=== PATIENT | female | born 1985 | race Hispanic/Latino ===

== ENCOUNTER 2018-12-18 06:04 | Emergency (ER) | payer OTHER ==
[2018-12-18] MEDS ORDERED: ONDANSETRON HCL 4 MG/2 ML VIAL ONE (06:09)
[2018-12-18 06:29] LABS: BASOPHILS % (AUTO) 0.6 % (0.0-5.0); EOSINOPHILS % (AUTO) 2.1 % (0.0-8.0); HEMATOCRIT 30.1 % (36-48); LYMPHOCYTES % (AUTO) 32.4 % (21.0-51.0); MEAN CORPUSCULAR HEMOGLOBIN 20.4 pg (27.0-33.0); MEAN CORPUSCULAR HGB CONC 30.2 g/dL (32.0-36.0); MEAN CORPUSCULAR VOLUME 67.4 fL (79-99); MONOCYTES % (AUTO) 5.6 % (3.0-13.0); NEUTROPHILS % (AUTO) 59.3 % (40.0-77.0); PLATELET COUNT (AUTO) 422 K/uL (130-400); RED BLOOD CELL COUNT(AUTO) 4.46 MIL/uL (4.00-5.50); RED CELL DISTRIBUTION WIDTH 17.1 % (11.0-15.5); WHITE BLOOD COUNT (AUTO) 9.7 K/uL (4.8-10.8)
[2018-12-18 06:34] LABS: BILIRUBIN,URINE NEGATIVE (NEGATIVE); COLOR,URINE YELLOW (YELLOW); GLUCOSE, URINE (UA) NEGATIVE (NEGATIVE); KETONES,URINE NEGATIVE (NEGATIVE); LEUKOCYTE ESTERASE ,URINE SMALL (NEGATIVE); NITRATE,URINE NEGATIVE (NEGATIVE); OCCULT BLOOD,URINE NEGATIVE (NEGATIVE); PH,URINE 5.5 (5.0-8.0); PROTEIN,URINE 30 (NEGATIVE); UROBILINOGEN,URINE 0.2 mg/dL (0.2-1.0)
[2018-12-18 06:36] LABS: HCG,QUAL RESULT NEGATIVE (NEGATIVE)
[2018-12-18 06:37] LABS: CREATININE 0.7 mg/dL (0.5-1.5); POTASSIUM 3.8 mmol/L (3.5-5.1)
[2018-12-18 06:42] LABS: APPEARANCE,URINE SLIGHTLY CLOUDY (CLEAR)
[2018-12-18 06:53] LABS: BACTERIA,URINE Moderate /HPF (None Seen); MUCUS,URINE Moderate LPF (None Seen); RBC,URINE None Seen /HPF (0-1)
== END 2018-12-18 07:11 | disposition home or self-care (01) ==
LOC: EDH 06:04
DX: F41.1 Generalized anxiety disorder (principal); D64.89 Other specified anemias; Z88.1 Allergy status to other antibiotic agents; Z90.49 Acquired absence of other specified parts of digestive tract
CPT/HCPCS: 36415; 80048; 81001; 81025; 82550; 82948; 83690; 84484; 85025; 93005; 96374; 99284; J2405

== ENCOUNTER 2020-12-01 08:53 | Emergency (ER) | payer OTHER ==
[2020-12-01 09:27] LABS: APPEARANCE,URINE Clear (CLEAR); BILIRUBIN,URINE Negative (NEGATIVE); COLOR,URINE Yellow (YELLOW); GLUCOSE, URINE (UA) Negative (NEGATIVE); KETONES,URINE Negative (NEGATIVE); LEUKOCYTE ESTERASE ,URINE Small (NEGATIVE); NITRATE,URINE Negative (NEGATIVE); OCCULT BLOOD,URINE Negative (NEGATIVE); PROTEIN,URINE Negative (NEGATIVE)
[2020-12-01 09:34] LABS: BASOPHILS % (AUTO) 0.4 % (0.0-5.0); EOSINOPHILS % (AUTO) 0.4 % (0.0-8.0); HEMATOCRIT 34.9 % (36-48); LYMPHOCYTES % (AUTO) 31.5 % (21.0-51.0); MEAN CORPUSCULAR HEMOGLOBIN 21.7 pg (27.0-33.0); MEAN CORPUSCULAR HGB CONC 29.2 g/dL (32.0-36.0); MEAN CORPUSCULAR VOLUME 74.3 fL (79-99); NEUTROPHILS % (AUTO) 63.5 % (40.0-77.0); PLATELET COUNT (AUTO) 308 K/uL (130-400); RED CELL DISTRIBUTION WIDTH 16.4 % (11.0-15.5); WHITE BLOOD COUNT (AUTO) 4.8 K/uL (4.8-10.8)
[2020-12-01 09:40] LABS: BACTERIA,URINE Moderate /HPF (None Seen); RBC,URINE 0-1 /HPF (0-1)
[2020-12-01 09:44] LABS: CARBON DIOXIDE 29 mmol/L (21-32); CHLORIDE 99 mmol/L (101-111); CREATININE 0.7 mg/dL (0.5-1.5); GLOMERULAR FILTR. RATE CALC 101 mL/min (>60); GLUCOSE,RANDOM 132 mg/dL (70-105); POTASSIUM 3.7 mmol/L (3.5-5.1); SODIUM SERUM 139 mmol/L (136-145); UREA NITROGEN, BLOOD 6 mg/dL (7-18)
[2020-12-01 09:47] LABS: INR 0.99 (0.85-1.15); PROTHROMBIN TIME 10.8 SEC (9.6-11.6)
[2020-12-01 09:49] LABS: PARTIAL THROMBOPLASTIN TIME 27.2 SEC (26.3-35.5)
[2020-12-01 09:56] LABS: ALANINE AMINOTRANSFERASE 52 U/L (12-78); ALBUMIN 3.6 g/dL (3.5-5.0); ASPARTATE AMINOTRANSFERASE 57 U/L (10-37); BILIRUBIN,TOTAL 0.2 mg/dL (0.2-1.0); CREATINE KINASE, TOTAL 59 U/L (21-232); MYOGLOBIN 26 ng/mL (10-92); TOTAL PROTEIN, SERUM 8.8 g/dL (6.0-8.3); TROPONIN I < 0.04 ng/mL (0.00-0.06)
== END 2020-12-01 11:12 | disposition home or self-care (01) ==
LOC: EDH 08:53
DX: U07.1 COVID-19 (principal); J20.9 Acute bronchitis, unspecified; E66.01 Morbid (severe) obesity due to excess calories; F41.9 Anxiety disorder, unspecified; Z88.1 Allergy status to other antibiotic agents; Z68.42 Body mass index [BMI] 45.0-49.9, adult
CPT/HCPCS: 36415; 71045; 80053; 81001; 81025; 82550; 83605; 83874; 84145; 84484; 85025; 85610; 85730; 86900; 86901; 87040; 87077; 87088; 87186; 87426; 93005

== ENCOUNTER 2022-09-12 23:30 | Observation (INO) | payer OTHER ==
[~2022-09-12] VITALS: Ht 167.6 cm; Wt 128.4 kg
[2022-09-13] MEDS ORDERED: KETOROLAC 30MG VIAL (30MG/ML) IVP ONE (00:30)
[2022-09-13] MEDS ORDERED: ONDANSETRON 4MG INJ IVP ONE (00:30)
[2022-09-13 00:34] LABS: BASOPHILS % (AUTO) 0.4 % (0.0-5.0); EOSINOPHILS % (AUTO) 2.2 % (0.0-8.0); HEMATOCRIT 24.4 % (36-48); LYMPHOCYTES % (AUTO) 33.3 % (21.0-51.0); MEAN CORPUSCULAR HEMOGLOBIN 18.8 pg (27.0-33.0); MEAN CORPUSCULAR HGB CONC 27.5 g/dL (32.0-36.0); MEAN CORPUSCULAR VOLUME 68.5 fL (79-99); NEUTROPHILS % (AUTO) 58.5 % (40.0-77.0); PLATELET COUNT (AUTO) 460 K/uL (130-400); RED BLOOD CELL COUNT(AUTO) 3.56 MIL/uL (4.00-5.50); RED CELL DISTRIBUTION WIDTH 17.1 % (11.0-15.5)
[2022-09-13 00:39] LABS: CREATININE 0.6 mg/dL (0.5-1.5); POTASSIUM 3.8 mmol/L (3.5-5.1)
[2022-09-13 00:43] LABS: ALBUMIN 3.4 g/dL (3.5-5.0); TOTAL PROTEIN, SERUM 7.8 g/dL (6.0-8.3)
[2022-09-13 01:11] LABS: APPEARANCE,URINE CLEAR (CLEAR); BILIRUBIN,URINE NEGATIVE (NEGATIVE); COLOR,URINE COLORLESS (YELLOW); GLUCOSE, URINE (UA) NEGATIVE (NEGATIVE); KETONES,URINE NEGATIVE (NEGATIVE); LEUKOCYTE ESTERASE ,URINE NEGATIVE Leu/uL (NEGATIVE); NITRATE,URINE NEGATIVE (NEGATIVE); OCCULT BLOOD,URINE NEGATIVE (NEGATIVE); PROTEIN,URINE NEGATIVE (NEGATIVE); UROBILINOGEN,URINE 0.2 mg/dL (0.2-1.0)
[2022-09-13 01:17] LABS: HCG,QUALITATIVE URINE NEGATIVE (NEGATIVE)
[2022-09-13] MEDS ORDERED: KETOROLAC 15MG/ML VIAL (15MG/ML) IV PRN (04:30)
[2022-09-13] MEDS ORDERED: ONDANSETRON 4MG INJ IV PRN (04:30)
[2022-09-13] MEDS ORDERED: MORPHINE 4 MG SYG IV PRN (04:30)
[2022-09-13] MEDS: 0.9%NACL 1000ML 1,000 ML IV SCH ×2 (05:52→19:19)
[2022-09-13 09:19] LABS: RETICULOCYTE % (AUTO) 1.39 % (0.42-2.23)
[2022-09-13 09:23] LABS: HEMATOCRIT 27.2 % (36-48)
[2022-09-13 10:02] LABS: % IRON SATURATION 8.8 % (22-44)
[2022-09-13 12:37] VITALS: BP 136/83
[2022-09-13 16:21] VITALS: BP 136/68
[2022-09-13 19:11] VITALS: BP 118/60
[2022-09-13 22:26] VITALS: BP 99/53
[2022-09-14 02:42] VITALS: BP 100/67
[2022-09-14] MEDS: 0.9%NACL 1000ML 1,000 ML IV SCH (05:15)
[2022-09-14 06:43] LABS: HEMATOCRIT 25.6 % (36-48); MEAN CORPUSCULAR HEMOGLOBIN 19.6 pg (27.0-33.0); MEAN CORPUSCULAR HGB CONC 27.7 g/dL (32.0-36.0); MEAN CORPUSCULAR VOLUME 70.7 fL (79-99); RED BLOOD CELL COUNT(AUTO) 3.62 MIL/uL (4.00-5.50); RED CELL DISTRIBUTION WIDTH 17.2 % (11.0-15.5); WHITE BLOOD COUNT (AUTO) 5.9 K/uL (4.8-10.8)
[2022-09-14] MEDS ORDERED: FERR325T29 PO (06:58)
[2022-09-14 07:08] VITALS: BP 111/74
[2022-09-14] MEDS ORDERED: FLU VACC QS2022-23(6MOS UP)/PF 60 MCG/0.5 ML ML IM ONE (08:00)
[2022-09-14 08:01] LABS: CREATININE 0.5 mg/dL (0.5-1.5); POTASSIUM 3.8 mmol/L (3.5-5.1)
[2022-09-14] MEDS ORDERED: IRON SUCROSE COMPLEX 100 MG in 0.9%NACL 50ML 50 ML IV SCH (09:00)
[2022-09-14] MEDS ORDERED: IRON SUCROSE COMPLEX 100 MG/5 ML VIAL IVP SCH (09:00)
[2022-09-14 11:25] VITALS: BP 121/70
== END 2022-09-14 13:30 | disposition home or self-care (01) ==
LOC: EDH 23:30 → EDHIP 23:31 → WSH 09-13 12:30
PROVIDERS: ADMIT Hospitalist; ATTEND Hospitalist
DX: D50.9 Iron deficiency anemia, unspecified (principal); N92.0 Excessive and frequent menstruation with regular cycle; E66.01 Morbid (severe) obesity due to excess calories; F17.210 Nicotine dependence, cigarettes, uncomplicated; Z68.43 Body mass index [BMI] 50.0-59.9, adult; Z79.899 Other long term (current) drug therapy; Z23 Encounter for immunization
CPT/HCPCS: 99284; 36415 ×2; 96374; 96376; 96361 ×2; 96375 ×2; 80053; 82728; 83690; 85025; 85014; 85018; 86850; 86900; 86901 ×2; 86923; 82607; 82270; 81003; 81025; 74176; 76856; 80048; 85027; 90471; G0378 ×29; P9016; J7030 ×3; J2405; J1885 ×2; Q2035; J1756

== ENCOUNTER 2025-02-24 20:37 | Emergency (ER) | payer SELFPAY ==
[~2025-02-24] VITALS: Ht 165.1 cm; Wt 141.1 kg
[~2025-02-24 20:37] MED LIST: FERR325T29 PO
--- NOTE | 2025-02-24 21:05 | NUR ---
PT ARRIVED TO ED C/O MUSCLE SPASMS TO BILAT LEGS WORST TODAY PER PT. PT VOICED FELT MUSCLE CRAMPING TO ENTIRE LEG AT HOME. PER PT HAS HIGH BLOOD PRESSURE BUT NOT ON MEDS DUE TO NO PCP. PT ALSO VOICED AT HOME WAS HAVING ON AND OFF GARCIA, DENIES GARCIA OR TINGLING AT THIS TIME. PT A&OX4 NO DISTRESS NOTED AT THIS TIME.
[2025-02-24 21:10] LABS: BASOPHILS # (AUTO) 0.02 K/uL (0.00-0.20); BASOPHILS % (AUTO) 0.2 % (0.0-5.0); EOSINOPHILS # (AUTO) 0.13 K/uL (0.00-0.70); EOSINOPHILS % (AUTO) 1.5 % (0.0-8.0); HEMATOCRIT 32.5 % (36-48); IMMATURE GRANULOCYTE ABSOLUTE 0.02 K/uL (0-1); LYMPHOCYTES # (AUTO) 2.6 K/uL (1.0-4.8); LYMPHOCYTES % (AUTO) 29.6 % (21.0-51.0); MEAN CORPUSCULAR HEMOGLOBIN 20.8 pg (27.0-33.0); MEAN CORPUSCULAR HGB CONC 28.3 g/dL (32.0-36.0); MEAN CORPUSCULAR VOLUME 73.4 fL (79-99); MONOCYTES # (AUTO) 0.6 K/uL (0.1-1.0); MONOCYTES % (AUTO) 6.2 % (3.0-13.0); NEUTROPHILS # (AUTO) 5.5 K/uL (1.8-7.7); NEUTROPHILS % (AUTO) 62.3 % (40.0-77.0); PLATELET COUNT (AUTO) 433 K/uL (130-400); RED BLOOD CELL COUNT(AUTO) 4.43 MIL/uL (4.00-5.50); RED CELL DISTRIBUTION WIDTH 18.1 % (11.0-15.5); WHITE BLOOD COUNT (AUTO) 8.8 K/uL (4.8-10.8)
[2025-02-24 21:21] LABS: CREATININE 0.6 mg/dL (0.5-1.0); POTASSIUM 3.9 mmol/L (3.5-5.1)
[2025-02-24] MEDS ORDERED: IBUP-1673 PO (22:18)
[2025-02-24] MEDS ORDERED: ACET-3859 PO (22:18)
--- NOTE | 2025-02-24 22:20 | ERN ---
General Chief Complaint: Muscle Spasm Stated Complaint: C/O MUSCLE SPASMS, HEADACHE Time Seen by MD: 20:39 Time Seen by Midlevel: 20:39 Source: patient History of Present Illness Initial Comments The patient was a pleasant 39-year-old female with a past medical history of anemia presenting to the emergency department for evaluation of generalized muscle spasms that started earlier today. She states that while doing her daily activities she was having muscle cramps. Denies any other symptoms. On arrival she did report developing a headache but denies any vision changes, nausea, vomiting, or any other symptoms at this time. Allergies: Coded Allergies: sulfamethoxazole (Unverified Allergy, Unknown, 09/12/22) trimethoprim (Unverified Allergy, Unknown, 09/12/22) Home Meds Active Scripts Ferrous Sulfate (Ferosul) 325 Mg Tablet, 325 MG PO BID, #60 TAB 0 Refills Prov:HURTADOWILIAM Jasmina AGPCSTAS 09/14/22 Past Medical History Past Medical History: Anemia Past Surgical History: Cholecystectomy Social History Social History: Other Female( History) LMP: Feb 21, 2025 ROS Dictation CONSTITUTIONAL: Negative except for HPI HEAD/FACE: Negative except for HPI EENT: Negative except for HPI RESPIRATORY: Negative except for HPI GASTROINTESTINAL/ABDOMINAL: Negative except for HPI GENITOURINARY: Negative except for HPI MUSCULOSKELETAL: Negative except for HPI INTEGUMENTARY: Negative except for HPI NEUROLOGICAL/PSYCH: Negative except for HPI HEMATOLOGIC/LYMPHATIC: Negative except for HPI All Systems Negative, Except as noted above. 13 point review of systems assessed and all negative except for above. Physical Exam Physical Exam Dictation Vital Signs reviewed General Appearance: Alert, oriented x 3, no acute distress, well developed, nourished. Head and Face: non-traumatic. Eyes: PERRL, pink conjunctivas, eyelid no trauma, anterior chamber with arcus senilis. Ears: Pinnas intact and no signs of trauma or erythema ear canals clear and no discharge TM no erythema Nose: No discharge, no bleeding. Oropharynx: Mouth normal, tongue pink, pharynx clear,no erythema, tonsils no exudates, no abscesses noted, mucous membrane moist Neck: Supple, non-tender, no thyromegaly, no masses, no JVD, no bruits Breast:Deferred Chest:No tenderness, no crepitus, no paradoxical movement, no retractions Lungs:Clear, well-ventilated, symmetric, no rales, no wheezing, no rhonchi, no stridor, good breath sounds bilaterally Heart: Regular rate, regular rhythm, no murmur, no gallops Vascular: no peripheral edema, Abdomen: Soft, positive bowel sounds, nondistended, no guarding, nontender, no rebound, no masses no hepatomegaly, no splenomegaly, no Dawn's s ign, no hernias. Rectal: Deferred Genital: Deferred Neurological: Normal speech, motor function intact, sensory function intact Musculoskeletal: Neck nontender, full range of motion, back nontender, full range of motion, Extremities: nontender, full range of motion Skin: Color pink, dry, no turgor, no rash, no lacerations, no abrasions, no contusions. Lymphatic: Deferred Results Laboratory and Microbiology Lab and Micro Result Laboratory Tests Test 02/24/25 21:04 White Blood Count 8.8 K/uL (4.8-10.8) Red Blood Count 4.43 MIL/uL (4.00-5.50) Hemoglobin 9.2 g/dL (12.0-16.0) L Hematocrit 32.5 % (36-48) L Mean Corpuscular Volume 73.4 fL (79-99) L Mean Corpuscular Hemoglobin 20.8 pg (27.0-33.0) L Mean Corpuscular Hemoglobin Concent 28.3 g/dL (32.0-36.0) L Red Cell Distribution Width 18.1 % (11.0-15.5) H Platelet Count 433 K/uL (130-400) H Mean Platelet Volume 9.3 fL (7.5-10.5) Immature Granulocyte % (Auto) 0.2 % (0-1) Neutrophils (%) (Auto) 62.3 % (40.0-77.0) Lymphocytes (%) (Auto) 29.6 % (21.0-51.0) Monocytes (%) (Auto) 6.2 % (3.0-13.0) Eosinophils (%) (Auto) 1.5 % (0.0-8.0) Basophils (%) (Auto) 0.2 % (0.0-5.0) Neutrophils # (Auto) 5.5 K/uL (1.8-7.7) Lymphocytes # (Auto) 2.6 K/uL (1.0-4.8) Monocytes # (Auto) 0.6 K/uL (0.1-1.0) Eosinophils # (Auto) 0.13 K/uL (0.00-0.70) Basophils # (Auto) 0.02 K/uL (0.00-0.20) Absolute Immature Granulocyte (auto 0.02 K/uL (0-1) Nucleated Red Blood Cells 0.0 % (0.0-0.19) Red Blood Cell Morphology See comments Sodium Level 135 mmol/L (136-145) L Potassium Level 3.9 mmol/L (3.5-5.1) Chloride Level 100 mmol/L (101-111) L Carbon Dioxide Level 30 mmol/L (21-32) Blood Urea Nitrogen 8 mg/dL (7-18) Creatinine 0.6 mg/dL (0.5-1.0) Glomerular Filtration Rate Calc 116 mL/min (>90) Random Glucose 107 mg/dL (70-105) H Total Calcium 8.7 mg/dL (8.5-10.1) Serum Test, Qualitative NEGATIVE (NEGATIVE) Labs Reviewed?: Yes MDM MDM: Differential diagnosis: Electrolyte abnormality, dehydration, There are no social concerns with this patient. Prescription drug management Prescriptions will include: Tylenol and Motrin Medical management and examination interpretation discussions were had by me with other qualified healthcare professionals as indicated for the patient's care. ED Course Orders Procedure Category Date Status Time Cbc With Differential LAB 02/24/25 Complete 20:57 Basic Metabolic Panel LAB 02/24/25 Complete 20:57 Testing, LAB 02/24/25 Complete Serum Hcg 20:57 Vital Signs Date Time Temp Pulse Resp B/P (MAP) Pulse Ox O2 Delivery O2 Flow Rate FiO2 02/24/25 21:00 102 20 155/99 100 Room Air* 0 21 02/24/25 20:39 98.2 92 20 176/100 96 Room Air DX & DISP Disposition: Discharge Departure Impression: Primary Impression: Muscle cramping Additional Impression: Chronic anemia Condition: Stable Scripts Ibuprofen (Motrin Ib) 200 Mg Tablet 2 TAB PO Q6H for 5 Days, #40 TAB 0 Refills Prov: SERAFIN LARSON 02/24/25 Acetaminophen (Acetaminophen) 325 Mg Tablet 1 TAB PO TID PRN for pain or fever for 10 Days, #30 TAB 0 Refills Prov: SERAFIN LARSON 02/24/25 Additional Instructions: Your blood work today is unremarkable. Your electrolytes are normal. Your kidney function is normal. You need to follow up with the primary care doctor. You may potentially establish with Iv[facility] Choi for outpatient evaluation. I have given you a prescription for Tylenol and Motrin as requested. Referrals: SELF,REFERRAL (PCP) Time of Disposition: 22:17 I have reviewed the case, and I agree with, Diagnosis and Plan I performed the substantive portion of the visit. I have reviewed and personally made and approve the management plan that is documented in the note by myself or the MERLIN. I acknowledge for responsibility for the patient's managem ent plan. SERAFIN LARSON Feb 24, 2025 22:20
[2025-02-24] MEDS: acetaMINOPHEN 500 MG TABLET PO ONE (22:22)
[2025-02-24 22:30] VITALS: BP 137/87; PULSE 91; RESP 18; TEMP 98.3; O2SAT 98
== END 2025-02-24 22:31 | disposition home or self-care (01) ==
LOC: EDH 20:37
DX: M62.838 Other muscle spasm (principal); D64.9 Anemia, unspecified; Z88.1 Allergy status to other antibiotic agents; Z88.2 Allergy status to sulfonamides; Z90.49 Acquired absence of other specified parts of digestive tract
CPT/HCPCS: 36415; 80048; 84703; 85025; 99283

== ENCOUNTER 2025-10-16 17:13 | Emergency (ER) | payer SELFPAY ==
[~2025-10-16] VITALS: Ht 162.6 cm; Wt 94.3 kg
[~2025-10-16 17:13] MED LIST changes: +ACET-3859 PO; +IBUP-1673 PO
[2025-10-16 17:44] LABS: IMMATURE GRANULOCYTE ABSOLUTE 0.03 K/uL (0-1); NUCLEATED RED BLOOD CELLS 0.0 % (0.0-0.19); PLATELET COUNT (AUTO) 438 K/uL (130-400); RED BLOOD CELL COUNT(AUTO) 4.45 MIL/uL (4.00-5.50); RED CELL DISTRIBUTION WIDTH 17.3 % (11.0-15.5); WHITE BLOOD COUNT (AUTO) 9.3 K/uL (4.8-10.8)
[2025-10-16 17:51] LABS: CREATININE 0.6 mg/dL (0.5-1.0); GLOMERULAR FILTR. RATE CALC 116.0 mL/min (>90); GLUCOSE,RANDOM 116.0 mg/dL (70-105); SODIUM SERUM 135.0 mmol/L (136-145); UREA NITROGEN, BLOOD 7.0 mg/dL (7-18)
--- NOTE | 2025-10-16 19:44 | HMCIMG ---
EXAM: US Pelvis, Complete. CLINICAL HISTORY: rlq abd pain r/o ovarian torsion TECHNIQUE: Transvaginal and transabdominal pelvic ultrasound (complete) with image documentation. COMPARISON: None provided. FINDINGS: ENDOMETRIUM: Endometrial thickness measures approximately 11 mm, within normal limits. UTERUS/CERVIX: The uterus measures approximately 11.6 x 6.7 x 5.6 cm with heterogeneous myometrial echoes. No focal uterine fibroid or other mass is identified. RIGHT OVARY: Measures approximately 3.2 x 1.6 x 3.1 cm. Bilateral ovarian vascularity is preserved. Multiple cysts are noted measuring 3.5 x 3.7 x 4.1 cm, 1.7 x 2.0 x 1.9 cm, and 2.1 x 1.7 x 1.6 cm. Small possible hydrosalpinx is noted in the right adnexa with a tubular structure. No evidence of torsion. LEFT OVARY: Measures approximately 2.5 x 1.6 x 2.5 cm. Bilateral ovarian vascularity is preserved. Cysts noted measuring 1.6 x 1.5 cm and 1.2 x 1.0 cm. FREE FLUID: No free fluid in the pelvis. IMPRESSION: Bilateral ovarian cysts with possible right hydrosalpinx. No evidence of torsion. /[place]
[2025-10-16] MEDS ORDERED: IOHEXOL-350 75 ML VIAL IV ONE (20:11)
[2025-10-16 20:36] LABS: APPEARANCE,URINE CLEAR (CLEAR); GLUCOSE, URINE (UA) NEGATIVE (NEGATIVE); LEUKOCYTE ESTERASE ,URINE NEGATIVE Leu/uL (NEGATIVE); NITRATE,URINE NEGATIVE (NEGATIVE); OCCULT BLOOD,URINE NEGATIVE (NEGATIVE)
[2025-10-16 20:37] LABS: ADD UA MICROSCOPIC NO
--- NOTE | 2025-10-16 20:41 | NUR ---
ER MEDICINE CABINET IS DEPLETED OF KETOROLAC 15MG/1ML VIALS. PHARMACY MADE AWARE.
--- NOTE | 2025-10-16 20:42 | NUR ---
PATIENT EDUCATED ON IODINE CONTRAST AND ASSOCIATED RISK. PATIENT VERBALIZED UNDERSTANDING AND CONSENT. CONTRAST CONSENT FORM SIGNED BY PATIENT AND WITNESSEDBY ED RN. FORM PLACED IN PATIENT'S CHART.
--- NOTE | 2025-10-16 22:09 | HMCIMG ---
EXAM: CT Abdomen and Pelvis with IV Contrast. CLINICAL HISTORY: Patient presents with right lower quadrant abdominal pain to rule out appendicitis. TECHNIQUE: Axial computed tomography images of the abdomen and pelvis performed with intravenous contrast. COMPARISON: None provided. FINDINGS: LUNG BASES: Clear lung bases without pleural effusion. LIVER: Mild hepatomegaly with the right hepatic lobe measuring up to 22.0 cm in craniocaudal dimension. Diffuse hepatic steatosis. GALLBLADDER AND BILE DUCTS: Gallbladder surgically absent. No biliary ductal dilatation. PANCREAS: Normal morphology. SPLEEN: Borderline splenomegaly measuring approximately 12.5 cm. ADRENAL GLANDS: Normal appearance. KIDNEYS, URETERS, AND BLADDER: Horseshoe kidney with fusion of the lower poles across the midline by a parenchymal isthmus and anteriorly malrotated yuliya. Renal parenchymal thickness and enhancement were preserved. No hydronephrosis or calculus. The urinary bladder is suboptimally distended with mild wall thickening. STOMACH AND BOWEL: Uncomplicated colonic diverticulosis without features of diverticulitis. No bowel obstruction. APPENDIX: Appendix within normal limits. PERITONEUM: Small volume of free fluid in the pouch of Ferdinand. No pneumoperitoneum. LYMPH NODES: No enlarged abdominopelvic lymph nodes. REPRODUCTIVE: The right ovary appears bulky, measuring approximately 3.3 x 6.2 cm. Complex tubulo-cystic lesion in the right adnexa closely abutting the ovary, measuring approximately 4.0 x 5.6 x 4.8 cm, with internal septations. VASCULATURE: Abdominal aorta of normal caliber. BONES: Multilevel mild spondylosis without acute osseous abnormality. IMPRESSION: No CT features of acute appendicitis. Mild hepatomegaly with hepatic steatosis Borderline splenomegaly. Post-cholecystectomy status. 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 A complex right adnexal tubulo-cystic lesion with associated ovarian enlargement may represent hydrosalpinx, pyosalpinx, or tuboovarian abscess. Small free fluid in the pouch of Ferdinand. Uncomplicated colonic diverticulosis. RECOMMENDATION: Pelvic ultrasound or contrast-enhanced MRI pelvis for further characterization of the right adnexal lesion, with MRI abdomen for comprehensive hepatobiliary and renal assessment if clinically indicated. /[place]
[2025-10-16] MEDS ORDERED: KETO10TA2 PO (22:44)
--- NOTE | 2025-10-16 22:45 | ERN ---
General Chief Complaint: Abdominal Pain Stated Complaint: ABDOMINAL PAIN Time Seen by MD: 17:15 Time Seen by Midlevel: 17:15 Source: patient History of Present Illness Initial Comments The patient is a 40-year-old female presenting to the emergency department for evaluation of right lower quadrant abdominal pain that has been persistently ongoing for several days. She states her pain increased in intensity today. Denies any nausea, vomiting, fever, chills, dysuria, hematuria, or any other symptoms at this time. Allergies: Coded Allergies: sulfamethoxazole (Unverified Allergy, Unknown, 09/12/22) trimethoprim (Unverified Allergy, Unknown, 09/12/22) Home Meds Active Scripts Ketorolac Tromethamine (Ketorolac Tromethamine) 10 Mg Tablet, 1 TAB PO TID for pain for 5 Days, #15 TAB 0 Refills Prov:SERAFIN LARSON PAC 10/16/25 Ibuprofen (Motrin Ib) 200 Mg Tablet, 2 TAB PO Q6H for 5 Days, #40 TAB 0 Refills Prov:SERAFIN LARSON PAC 02/24/25 Acetaminophen (Acetaminophen) 325 Mg Tablet, 1 TAB PO TID PRN for pain or fever for 10 Days, #30 TAB 0 Refills Prov:SERAFIN LARSON PAC 02/24/25 Ferrous Sulfate (Ferosul) 325 Mg Tablet, 325 MG PO BID, #60 TAB 0 Refills Prov:WILIAM HURTADO AGACNP 09/14/22 Past Medical History Past Medical History: No Pertinent History, Anemia Past Surgical History: Cholecystectomy Social History Social History: Other ROS Dictation CONSTITUTIONAL: Negative except for HPI HEAD/FACE: Negative except for HPI EENT: Negative except for HPI RESPIRATORY: Negative except for HPI GASTROINTESTINAL/ABDOMINAL: Negative except for HPI GENITOURINARY: Negative except for HPI MUSCULOSKELETAL: Negative except for HPI INTEGUMENTARY: Negative except for HPI NEUROLOGICAL/PSYCH: Negative except for HPI HEMATOLOGIC/LYMPHATIC: Negative except for HPI All Systems Negative, Except as noted above. 13 point review of systems assessed and all negative except for above. Physical Exam Physical Exam Dictation Vital Signs reviewed General Appearance: Alert, oriented x 3, no acute distress, well developed, nourished. Head and Face: non-traumatic. Eyes: PERRL, pink conjunctivas, eyelid no trauma, anterior chamber with arcus senilis. Ears: Pinnas intact and no signs of trauma or erythema ear canals clear and no discharge TM no erythema Nose: No discharge, no bleeding. Oropharynx: Mouth normal, tongue pink, pharynx clear,no erythema, tonsils no exudates, no abscesses noted, mucous membrane moist Neck: Supple, non-tender, no thyromegaly, no masses, no JVD, no bruits Breast:Deferred Chest:No tenderness, no crepitus, no paradoxical movement, no retractions Lungs:Clear, well-ventilated, symmetric, no rales, no wheezing, no rhonchi, no stridor, good breath sounds bilaterally Heart: Regular rate, regular rhythm, no murmur, no gallops Vascular: no peripheral edema, Abdomen: Soft, positive bowel sounds, nondistended, no guarding, Right lower quadrant abdominal tenderness, no rebound, no masses no hepatomegaly, no splenomegaly, no Dawn's sign, no hernias. Rectal: Deferred Genital: Deferred Neurological: Normal speech, motor function intact, sensory function intact Musculoskeletal: Neck nontender, full range of motion, back nontender, full range of motion, Extremities: nontender, full range of motion Skin: Color pink, dry, no turgor, no rash, no lacerations, no abrasions, no contusions. Lymphatic: Deferred Results Laboratory and Microbiology Lab and Micro Result Laboratory Tests Test 10/16/25 17:33 10/16/25 20:27 White Blood Count 9.3 K/uL (4.8-10.8) Red Blood Count 4.45 MIL/uL (4.00-5.50) Hemoglobin 8.7 g/dL (12.0-16.0) L Hematocrit 31.5 % (36-48) L Mean Corpuscular Volume 70.8 fL (79-99) L Mean Corpuscular Hemoglobin 19.6 pg (27.0-33.0) L Mean Corpuscular Hemoglobin Concent 27.6 g/dL (32.0-36.0) L Red Cell Distribution Width 17.3 % (11.0-15.5) H Platelet Count 438 K/uL (130-400) H Mean Platelet Volume 9.3 fL (7.5-10.5) Immature Granulocyte % (Auto) 0.3 % (0-1) Neutrophils (%) (Auto) 73.2 % (40.0-77.0) Lymphocytes (%) (Auto) 20.2 % (21.0-51.0) L Monocytes (%) (Auto) 5.0 % (3.0-13.0) Eosinophils (%) (Auto) 0.9 % (0.0-8.0) Basophils (%) (Auto) 0.4 % (0.0-5.0) Neutrophils # (Auto) 6.8 K/uL (1.8-7.7) Lymphocytes # (Auto) 1.9 K/uL (1.0-4.8) Monocytes # (Auto) 0.5 K/uL (0.1-1.0) Eosinophils # (Auto) 0.08 K/uL (0.00-0.70) Basophils # (Auto) 0.04 K/uL (0.00-0.20) Absolute Immature Granulocyte (auto 0.03 K/uL (0-1) Nucleated Red Blood Cells 0.0 % (0.0-0.19) Red Blood Cell Morphology See comments Sodium Level 135 mmol/L (136-145) L Potassium Level 4.0 mmol/L (3.5-5.1) Chloride Level 100 mmol/L (101-111) L Carbon Dioxide Level 28 mmol/L (21-32) Blood Urea Nitrogen 7 mg/dL (7-18) Creatinine 0.6 mg/dL (0.5-1.0) Glomerular Filtration Rate Calc 116 mL/min (>90) Random Glucose 116 mg/dL (70-105) H Total Calcium 8.7 mg/dL (8.5-10.1) Serum Test, Qualitative NEGATIVE (NEGATIVE) Urine Color COLORLESS (YELLOW) Urine Appearance CLEAR (CLEAR) Urine pH 5.5 (5.0-8.0) Urine Specific [place] 1.007 (1.001-1.031) Urine Protein NEGATIVE mg/dL (NEGATIVE) Urine Glucose (UA) NEGATIVE mg/dL (NEGATIVE) Urine Ketones NEGATIVE mg/dL (NEGATIVE) Urine Occult Blood NEGATIVE (NEGATIVE) Urine Nitrate NEGATIVE (NEGATIVE) Urine Bilirubin NEGATIVE mg/dL (NEGATIVE) Urine Urobilinogen 0.2 mg/dL (0.2-1.0) Urine Leukocyte Esterase NEGATIVE Maycol/uL Labs Reviewed?: Yes MDM MDM: The patient is a 40-year-old female presenting to the emergency department for evaluation of right lower quadrant abdominal pain that has been persistently ongoing for several days. She states her pain increased in intensity today. Denies any nausea, vomiting, fever, chills, dysuria, hematuria, or any other symptoms at this time. Labs are stable. Ultrasound shows bilateral ovarian cyst with possible right hydrosalpinx. There is flow to bilateral ovaries. Patient will need to follow up outpatient with OBGYN. A copy of her CT scan and pelvic ultrasound was given to the patient. Patient understand and all questions have been answered. Differential diagnosis: Acute appendicitis, ovarian torsion, ovarian cyst There are no social concerns with this patient. Prescription drug management Prescriptions will include: Toradol Medical management and examination interpretation discussions were had by me with other qualified healthcare professionals as indicated for the patient's care. ED Course Orders Procedure Category Date Status Time Cbc With Differential LAB 10/16/25 Complete 17:22 Basic Metabolic Panel LAB 10/16/25 Complete 17:22 Urinalysis Profile LAB 10/16/25 Complete 17:22 Testing, LAB 10/16/25 Complete Serum Hcg 17:22 Ct Abdomen/Pelvis CT 10/16/25 Resulted W/Contrast 17:22 Us Pelvic Non-Ob US 10/16/25 Resulted Limited 17:22 Ketorolac PHA 10/16/25 Complete Tromethamine 15mg/Ml 17:30 Iohexol (Omnipaque) PHA 10/16/25 Complete 20:11 Ketorolac PHA 10/16/25 Complete Tromethamine 15mg/Ml 22:09 Hydrocodone/Apap PHA 10/16/25 Logged 5/325 ([place] 5/325mg) 23:00 Current Medications Medications (Trade) Dose Ordered Sig/Sandeep Route PRN Reason Start Time Stop Time Status Last Admin Dose Admin Acetaminophen/ Hydrocodone Bitart (NORco 5/325MG) 1 tab ONCE ONCE PO 10/16/25 23:00 10/16/25 23:01 UNV Iohexol (Omnipaque) 75 ml STK-MED ONCE IV 10/16/25 20:11 10/16/25 20:11 DC Ketorolac Tromethamine (toRADol) 15 mg ONCE ONCE IV 10/16/25 17:30 10/16/25 17:31 DC 10/16/25 22:13 Ketorolac Tromethamine (toRADol) 15 mg STK-MED ONCE .ROUTE 10/16/25 22:09 10/16/25 22:09 DC Vital Signs Date Time Temp Pulse Resp B/P (MAP) Pulse Ox O2 Delivery O2 Flow Rate FiO2 10/16/25 20:34 97.9 101 19 165/86 98 Room Air* 0 21 10/16/25 17:15 97.9 111 16 155/82 99 Room Air DX & DISP Disposition: Discharge Departure Impression: Primary Impression: Bilateral ovarian cysts Additional Impression: Hydrosalpinx Condition: Stable Scripts Ketorolac Tromethamine (Ketorolac Tromethamine) 10 Mg Tablet 1 TAB PO TID for pain for 5 Days, #15 TAB 0 Refills Prov: SERAFIN LARSON PAC 10/16/25 Additional Instructions: Your pelvic ultrasound today showed bilateral ovarian cyst with a possible right hydrosalpinx. This will need to be evaluated outpatient by an OBGYN. Referrals: SELF,REFERRAL (PCP) ANDRIY JONES MD, NOEMI MD Time of Disposition: 22:44 I have reviewed the case, and I agree with, Diagnosis and Plan I performed the substantive portion of the visit. I have reviewed and personally made and approve the management plan that is documented in the note by myself or the MERLIN. I acknowledge for responsibility for the patient's management plan. SERAFIN LARSON PAC Oct 16, 2025 22:45
[2025-10-16] MEDS: HYDROcodone/APAP 5/325 1 TAB TABLET PO ONE (22:57)
[2025-10-16 23:01] VITALS: BP 158/85; PULSE 97; RESP 19; TEMP 97.9; O2SAT 99
== END 2025-10-16 23:03 | disposition home or self-care (01) ==
LOC: EDH 17:13
DX: N83.201 Unspecified ovarian cyst, right side (principal); N83.202 Unspecified ovarian cyst, left side; N70.11 Chronic salpingitis; Z88.2 Allergy status to sulfonamides; Z90.49 Acquired absence of other specified parts of digestive tract
CPT/HCPCS: 99285; 74177; 96374; 76857; 80048; 84703; 85025; 81003; 36415; J1885; Q9967